=== PATIENT | male | born 1985 | race Caucasian/White ===

== ENCOUNTER 2024-03-28 17:06 | Emergency (ER) | payer OTHER, SELFPAY ==
[2024-03-28 17:13] VITALS: BP 135/80; PULSE 110; RESP 18; TEMP 36.6; O2SAT 96; BMI 27.7
--- NOTE | 2024-03-28 17:14 | ED.GENADULT ---
HPI - General Adult General Time Seen by Provider: 17:14 Date Seen: 03/28/24 Chief complaint: Extremity Pain/Injury, Lower Stated complaint: Numbness/pain in R leg Time Seen by Provider: 03/28/24 17:13 Source: patient, RN notes reviewed and old records reviewed Mode of arrival: ambulatory Limitations: no limitations History of Present Illness HPI narrative: 38-year-old male who presents today with right leg pain and numbness. Patient noted today that he has some decreased sensation of the right anterior lateral thigh. No leg weakness, no bowel or bladder incontinence, no back pain. Notes that he is driving his 's car now. Also notes a tender superficial vessel of the right posterior medial lower leg but no leg swelling or calf pain. Related Data Home Medications Medication Instructions Recorded Confirmed No Known Home Medications 03/28/24 03/28/24 Allergies Allergy/AdvReac Type Severity Reaction Status Date / Time No Known Drug Allergies Allergy Verified 03/28/24 17:13 Exam Narrative: Exam Narrative: General: well nourished , NAD Head: Atraumatic and normocephalic ENT: External ears and external nose are normal Eyes: Conjunctiva clear, pupils are equal reactive, external ocular motions are intact Neck: Full spontaneous range of motion of the neck Lungs: No respiratory distress Musculoskeletal: Prominent tender superficial vessel of the right posterior medial lower leg without erythema or warmth Neurologic: Decreased sensation of the anterior lateral mid and lower thigh Skin: No rashes Psych: Mood and affect are appropriate Const: Vital Signs, click to edit/add: Vital Signs - 24 hr 03/28/24 17:13 Temperature 97.9 F Pulse Rate [Pulse Oximeter] 110 H Respiratory Rate 18 Blood Pressure [Ri ght Upper Arm] 135/80 Pulse Oximetry 96 Oxygen Delivery Me thod Room Air Course Course ED Course: Patient seen and examined, prior records reviewed. Patient presents today with decreased sensation of the right anterior lateral thigh, no other neurologic deficits, strength and sensation of the lower extremities intact otherwise. Symptoms are most consistent with meralgia paresthetica which may be related to patient having a new cough are and being in a different position for driving. He also has a tender superficial varicose vein of the right lower leg, bedside ultrasound demonstrates that this is fully compressible, deep veins of the lower leg are also fully compressible. This is consistent with a tender varicose vein but no evidence for superficial or deep thrombus. Patient is stable for discharge. Vital Signs Vital signs: Initial Vital Signs Temperature 97.9 F 03/28/24 17:13 Temperature Source Temporal Artery Scan 03/28/24 17:13 Pulse Rate 110 H 03/28/24 17:13 Pulse Rhythm Regular 03/28/24 17:13 Respiratory Rate 18 03/28/24 17:13 Blood Pressure 135/80 03/28/24 17:13 Blood Pressure Mean 98 03/28/24 17:13 Blood Pressure Position Sitting 03/28/24 17:13 Pulse Oximetry 96 03/28/24 17:13 Oxygen Delivery Method Room Air 03/28/24 17:13 Vital Signs Temperature 97.9 F 03/28/24 17:13 Pulse Rate 110 H 03/28/24 17:13 Respiratory Rate 18 03/28/24 17:13 Blood Pressure 135/80 03/28/24 17:13 Pulse Oximetry 96 03/28/24 17:13 Oxygen Delivery Method Room Air 03/28/24 17:13 Temperature 97.9 F 03/28/24 17:13 Pulse Rate 110 H 03/28/24 17:13 Respiratory Rate 18 03/28/24 17:13 Blood Pressure 135/80 03/28/24 17:13 Pulse Oximetry 96 03/28/24 17:13 Oxygen Delivery Method Room Air 03/28/24 17:13 Discharge Plan Discharge Clinical Impression: Varicose veins of calf, Meralgia paresthetica of right side Patient Disposition: Home, Self-Care Condition: Stable Instructions: Meralgia Paresthetica (ED) Additional Instructions: Follow-up with your primary care doctor, consider physical therapy Activity Level: No Restrictions Discharge Diet: Regular Prescriptions: No Action No Known Home Medications Stand Alone Forms: MyHealth Info Instructions
--- OUTSIDE RECORDS SUMMARY | 2024-03-28 17:46 | XMS_ITS | Patient Health Record ---
Author Name Unknown Organization [facility] [[email or web address]] S Address [address] [id number] Care Team Providers Care Undercar Specialist Name Role Phone Parish Martinez Primary Care Provider [phone] Reason For Referral No Information Medications Medication SIG (Take, Route, Frequency, Duration) Notes Start Date End Date Status zzz(CUSTOM Rx) NONE O *please review for potential _update for e-prescription and drug interaction check* Not-Taking Immunizations Vaccine Route Administration Date Status Comme nts Tdap (Adacel 11-64 yrs) IM Intramuscular 04/12/2010 Admini stered Social History Tobacco Use: Social History Observation Description Date Details (start date - stop date) Never Smoker NA - NA Alcohol Screen Question Answer Notes Did you have a drink contain ing alcohol in the past year? Yes How often did you have a dri nk containing alcohol in the past year? Two to four times a month (2 points) How many drinks did you have on a typical day when you were drinking in the past year? 3 or 4 (1 point) How often did you have six o r more drinks on one occasion in the past year? Never (0 points) Points 3 Interpretation Negative Tobacco Status Question Answer Notes I am: never smoker Problems No Known Problems Plan Of Treatment No Information Insurance Providers Payer Name Payer Address Payer Phone Subscriber Number Group Number Insured Name Patient Relationship to Insured Coverage Start Date Coverage End Date [employer] [address] [place] [id number] [phone] [id number] Ethan Bradshaw Self - patient is the insured 0 Medical (General) History Medical History History ICD Code No chronic medical issues SVT s/p ablation, no residual issues Surgical History Surgery Date(Month/Year) Hospitalization History Reason Date(Month/Year) Cardiac ablation due to SVT 2008
--- OUTSIDE RECORDS SUMMARY | 2024-03-28 17:46 | XMS_ITS | Referral Summary ---
Author Name Unknown Organization [facility] Address [address] [place] [id number] Care Team Providers Care C++ Quant Developer Name Role Phone No Ref-Primary, Physician Primary Care Provider Allergies No known active allergies Medications Medication Sig Dispensed Refills Start Date End Date Status cefdinir (OMNICEF) 300 MG capsuleIndications:Fe agusto, unknown origin Take 1 capsule (300 mg) by mouth 2 times daily 20 capsule 09/23/2017 Active azithromycin (ZITHROMAX) 250 MG tabletIndications:Upp er respiratory tract infection, unspecified type Two tablets first day, then one tablet daily for four days. 6 tablet 09/25/2017 Active Active Problems No known active problems Immunizations Name Administration Dates Next Due Influenza Vaccine >6 months,[email or web address] 07/21/2017 Social History Tobacco Use Types Packs/Day Years Used Date Smoking Tobacco: Never Smokeless Tobacco: Never Alcohol Use Standard Drinks/Week Comments Yes 0 (1 standard drink = 0.6 oz pur e alcohol) maybe 5-6 drinks once a week Sex and Gender Information Value Date Recorded Sex Assigned at Not on file Gender Identity Not on file Sexual Orientation Not on file Last Filed Vital Signs Vital Sign Reading Time Taken Comments Blood Pressure 118/74 09/25/2017 2:28 PM [employer]CIAL [employer]ASING [employer]ENT Pulse 114 09/25/2017 2:28 PM [employer]ING [employer]ENT Temperature 36.8 ??C (98.3 ??F) 09/25/2017 2:28 PM CS T Respiratory Rate 17 09/25/2017 2:28 PM [employer]ING [employer]ENT Oxygen Saturation 97% 09/25/2017 2:28 PM [employer]ING [employer]ENT Inhaled Oxygen Concentration - - Weight 87.5 kg (193 lb) 09/25/2017 2:28 PM COMM[employer] LEASING AGENT Height 185.4 cm (6' 1) 09/25/2017 2:28 PM COMM[employer]CIAL LEASING AGENT Body Mass Index 25.46 09/25/2017 2:28 PM COMMERCIAL LEASING AGENT Plan of Treatment Not on file Care Teams C++ Quant Developer Relationship Specialty Start Date End Date No Ref-Primary, Physician PCP - General 09/23/17
--- OUTSIDE RECORDS SUMMARY | 2024-03-28 17:46 | XMS_ITS | Clinical Summary ---
Author Name Unknown Organization [facility] Address [address] [place] [address] Care Team Providers Care Director Hematology Name Role Phone Unknown, Physician Primary Care Provider [phone] Source Comments You are receiving this document as you are listed as the primary care provider,follow-up provider, or the patient has been referred to you for consultation.This is in compliance with the Medicare and[facility] EHR Incentive Program,which states Providers who transition their patient to another setting of careor provider of care or refers their patient to another provider of care shouldprovide summary care record for each transition of care or referral. [facility] Allergies No known active allergies Medications No known medications Active Problems No known active problems Social History Tobacco Use Types Packs/Day Years Used Date Smoking Tobacco: Every Day Comments:chewing tobacco Alcohol Use Standard Drinks/Week Comments Not Asked 0 (1 standard drink = 0.6 oz pur e alcohol) Sex and Gender Information Value Date Recorded Sex Assigned at Not on file Gender Identity Not on file Sexual Orientation Not on file Last Filed Vital Signs Vital Sign Reading Time Taken Comments Blood Pressure 127/71 05/30/2021 3:58 PM CDT Pulse 96 05/30/2021 3:58 PM CDT Temperature 36.6 ??C (97.8 ??F) 01/15/2006 3:15 PM CS T Respiratory Rate 16 05/30/2021 3:58 PM CDT Oxygen Saturation 96% 05/30/2021 3:58 PM CDT Inhaled Oxygen Concentration - - Weight - - Height - - Body Mass Index - - Plan of Treatment Health Maintenance Due Date Last Done Comments Hep C Screening (Preventive Services) 1987 Pneumococcal (1 - PCV) 1993 HIV Screening (Preventive Services) 2003 Adult Preventive Visit 2005 HepB (1) 2006 Cholesterol 2022 COVID-19 Vaccine (3 - season) 2023 12/22/2020, 11/24/2020 Influenza (Season Ended) 2024 020, 08/19/2019, 07/31/2018, Additional history exists DTaP/Tdap/Td (4 - Tdap) 02/16/2027 02/17/20 17, 05/16/2010, 04/12/2010 Zoster/Shingles (1 of 2) 2037 HPV Vaccine Aged Out No longer eligi ble based on patient's age to complete this topic HepA Aged Out No longer eligi ble based on patient's age to complete this topic Hib Aged Out No longer eligi ble based on patient's age to complete this topic IPV (Polio) Aged Out No longer eligi ble based on patient's age to complete this topic MCV4 Aged Out No longer eligi ble based on patient's age to complete this topic Care Teams Director Hematology Relationship Specialty Start Date End Date Unknown, Physician [address] [place] [address] PCP - General 11/06/08
--- OUTSIDE RECORDS SUMMARY | 2024-03-28 17:46 | XMS_ITS | Clinical Summary ---
Author Name Unknown Organization [facility] Address [place], [place] [address] Care Team Providers Care Cross Roller Name Role Phone Leroy Santos MD Primary Care Provider [phone] Wesley Gandara MD Unavailable [phone] Allergies No known active allergies Medications Medication Sig Dispensed Refills Start Date End Date Status trimethoprim-poly myxin b (POLYTRIM) ophthalmic solution APPLY 1 DROP INTO THE AFFECTED EYE(S) EVERY 3 HOURS UP TO 6 TIMES A DAY FOR 7 DAYS 02/15/2024 03/05/2024 Discontinued( *Med complete/Ana men complete/Leve l of care change) Active Problems Problem Noted Date Diagnosed Date Dysplastic nevi 11/11/2022 Overview: 11/08/22: Compound nevus with severe atypia - excised 12/28/22 Tendinitis of right rotator cuff 12/25/2017 Acute pain of right shoulder 12/25/2017 Viral warts 02/03/2016 SVT (supraventricular tachycardia) 01/08/2009 Overview: Atypical AVNRT, ELECTROPHYSIOLOGY STUDY, ABLATION 01-08-2009 ATTENTION DEFICIT DISORDER WITH HYPERACTIVITY BACK ACHE 05/08/2000 Encounters Date Type Department Care Team Description 03/28/2024 Nurse Triage [facility] [address] [place] [address] Leroy Santos MD Leg Pain/problem 03/27/2024 Procedure Only [facility] [address] [place] [address] Device Check (Routine LINQ Remote Transmis... 03/05/2024 4:10 PM CDT Orders Only [facility] [address] [place] [address] Lab 03/05/2024 2:45 PM CDT Ancillary Procedure [facility] [address] [place] [address] 03/05/2024 1:56 PM CDT - 03/05/2024 11:59 PM CDT Hospital Encounter [facility] [address] [place] [address] Wesley Gandara MD SVT (supraventricular tachycardia) (HC); Family history of early CAD 03/05/2024 9:30 AM CDT Telemedicine [facility] [address] [place] [address] Verito Murguia NP Telehealth 03/05/2024 Travel 03/04/2024 Telephone [facility] [address] [place] [address] Roselyn Carson RN 03/04/2024 Telephone [facility] [address] [place] [address] Verito Murguia NP Sleep Consult 03/02/2024 Nurse Triage [facility] [address] [place] [address] Jean-Claude Campa MD Concerns 02/22/2024 11:19 AM CDT - 02/22/2024 12:46 PM CDT Hospital Encounter [facility] [address] [place] [address] Jean-Claude Campa MD Discharge Disposition: Home Self Care 02/22/2024 Travel 02/19/2024 7:30 PM CDT Office Visit [facility] [address] [place] [address] Neelam Vuong NP Throat Problem 02/19/2024 Travel 02/15/2024 Everyday Online [facility] E-Visits [address] [place] [address] Job Whalen NP 02/15/2024 Telephone [facility] [address] [place] [phone] Jean-Claude Campa MD Pre Procedure; Letter; Education 02/09/2024 10:30 AM CDT Office Visit [facility] [address] [place] [phone] Wesley Gandara MD Follow Up (Follow up after testing); Concerns (Patient denies CP, SOB and dizziness. Patient did have CP at the time he had the heart monitor on. ) 02/09/2024 Travel 01/30/2024 Telephone [facility] [address] [place] [address] Wesley Gandara MD Results (Heart monitor) 01/22/2024 Telephone [facility] [address] [place] [address] Wesley Gandara MD 01/19/2024 11:42 AM TRACTOR CRANE OPERATOR - 01/19/2024 11:59 PM TRACTOR CRANE OPERATOR Hospital Encounter [facility] [address] [place] [address] Wesley Gandara MD SVT (supraventricular tachycardia) 01/19/2024 5:14 AM TRACTOR CRANE OPERATOR - 01/19/2024 6:57 AM TRACTOR CRANE OPERATOR [facility] [address] [place] [address] Jesus Vásquez IV, MD Chest pain, unspecified type (Primary Dx); Palpitations Discharge Disposition: Home Self Care 01/19/2024 Travel from Last 3 Months Immunizations Name Administration Dates Next Due COVID-19 vaccine (Moderna 100mcg/0.5mL) AGNIESZKA ENG 12/22/2020,11/24/2020 Influenza, IIV3 (Age >=3 years) 10/12/2012 Influenza, IIV4 09/20/2022,07/21/2017,12/22/2016 Influenza, IIV4 (=>6mos) MDV 08/18/2021, 08/19/2020,08/19/2019,07/31/20 18 Td (Age >=7 Years) 05/16/2010 Tdap 02/16/2017,04/12/2010 Family History Medical History Relation Name Comments Good Health Father Good Health Mother Relation Name Status Comments Father Mother Social History Tobacco Use Types Packs/Day Years Used Date Smoking Tobacco: Former Cigarettes Smokeless Tobacco: Former Tobacco Cessation:Counseling Given: Not Answered Comments:Quit 8-10 years ago. Noted 10/08/19 Alcohol Use Standard Drinks/Week Comments Yes 0 (1 standard drink = 0.6 oz pur e alcohol) social PHQ-2 Answer Date Recorded PHQ-2 TOTAL SCORE 0 10/17/2022 Social Connections Answer Date Recorded Frequency of Communication with Friends and Fami ly 0 02/19/2024 Financial Resource Strain Answer Date R ecorded Difficulty of Paying Living Expenses 3 02/19/2024 Difficulty of Paying Living Expenses Not on file 02/19/2024 Food Insecurity Answer Date Recorded Worried About Running Out of Food in the Last Ye ar 1 02/19/2024 Transportation Needs Answer Date Record ed Lack of Transportation (Medical) 1 02/19/2024 Housing Stability Answer Date Recorded Unable to Pay for Housing in the Last Year 1 02/19/2024 Sex and Gender Information Value Date Recorded Sex Assigned at Not on file Gender Identity Not on file Sexual Orientation Not on file Obstetrics History Last Filed Vital Signs Vital Sign Reading Time Taken Comments Blood Pressure 158/84 03/05/2024 3:35 PM CDT Pulse 104 03/05/2024 3:35 PM CDT Temperature 37.2 ??C (98.9 ??F) 02/22/2024 1 1:48 AM CDT Respiratory Rate 16 02/22/2024 11:4 8 AM CDT Oxygen Saturation 93% 03/05/2024 3:35 PM CDT Inhaled Oxygen Concentration - - Weight 96.1 kg (211 lb 14.4 oz) 024 10:29 AM CDT Height 185.4 cm (6' 1) 01/19/2024 5:11 AM TRACTOR CRANE OPERATOR Body Mass Index 27.96 01/19/2024 5:11 AM TRACTOR CRANE OPERATOR Plan of Treatment Upcoming Encounters Date Type Department Care Team (Late st Contact Info) Description 03/29/2024 2:20 PM CDT Office Visit [facility] [address] [place] [address] [place] [address] [address] 04/29/2024 Procedure Only [facility] [address] [place] [address] Health Maintenance Due Date Last Done Comments HIV for age 15-65 2002 Hepatitis C screening for age 18-79 2005 Lipids for age 35-44 2022 COVID-19 vaccine series ( season) 2023 12/22/2020, 11/24/2020 Depression screening for age 12+ 10/17/2023 10/17/2022, 10/11/2019, 10/08/2019, Additional history exists Influenza for age 9-49 07/21/2024 , 08/18/2021, 08/19/2020, Additional history exists BMI (ht and wt on same day) for age 18+ 12/27/2024 12/27/2023, 01/10/2023, 10/17/2022, Additional history exists Tetanus booster 02/16/2027 02/16/2017, 04/21, 04/12/2010 Tdap Completed 02/16/2017, 04/12/2010 Pneumococcal series for age 6-64 Aged Out No longer eligible based on patient's age to complete this topic Procedures Procedure Name Priority Date/Time Associated Diagnosis Comments MR CARDIAC STRESS IMAGING WWO Routine 03/05/2024 4:00 PM CDT SVT (supraventricular tachycardia) (HC) Family history of early CAD HEMATOCRIT/HGB,ISTA T Routine 03/05/2024 2:51 PM CDT XR EYE FOREIGN BODY STAT 03/05/2024 2 :33 PM CDT SVT (supraventricular tachycardia) (HC) Family history of early CAD EKG 12 LEAD Preop 02/22/2024 11:43 AM CDT STREP A PCR STAT 02/19/2024 7:40 PM CDT Sore throat THROAT RAPID STREP A WITH REFLEX STAT 02/19/2024 7:40 PM CDT Sore throat ACT MONITOR Routine 01/29/2024 SVT (supraventricular tachycardia) ECHO TTE COMPLETE WO CONTRAST Routine 01/19/2024 12:12 PM TRACTOR CRANE OPERATOR SVT (supraventricular tachycardia) XR CHEST 2 VIEWS PA AND LATERAL STAT 01/19/2024 6:24 AM TRACTOR CRANE OPERATOR TSH PRAFUL 01/19/2024 5:27 AM TRACTOR CRANE OPERATOR D-DIMER,QUANTITATIV E STAT 01/19/2024 5:27 AM TRACTOR CRANE OPERATOR TROPONIN T (HS) ACUTE W/2HR REFLEX STAT 01/19/2024 5:27 AM TRACTOR CRANE OPERATOR BASIC METABOLIC PANEL STAT 01/19/2024 5:27 AM TRACTOR CRANE OPERATOR CBC W PLT NO DIFF STAT 01/19/2024 5:2 7 AM TRACTOR CRANE OPERATOR EKG 12 LEAD STAT 01/19/2024 5:17 AM TRACTOR CRANE OPERATOR from Last 3 Months Results * MR CARDIAC STRESS IMAGING WWO (03/05/2024 4:00 PM CDT) Anatomical Region Laterality Modality Magnetic Resonan ce 03/05/2024 3:03 PM CDT Narrative 03/05/2024 4:03 PM CDT ?[facility] ? CMR Report ??MRN: ?[id number] ?Name: ?ETHAN JUNIOR ?: ? 1984-Johnathan-12 ?Scan Date: ? Electronically signed by Alberto Lester 16:03:48 VITALS ===== HEIGHT: 73 in ?(185 cm) WEIGHT: 210 lbs ?(95 kgs) BSA: 2.20 m^2 FINAL IMPRESSION ===== 1. Stress MRI is negative for ischemia. - No perfusion defect noted. - Normal global myocardial blood flow (3.2 ml/min/g). - Normal global myocardial perfusion reserve (2.8). 2. LV cavity size is normal. LV wall thickness is normal. LV systolic function is normal. Quantitative LVEF 59 %. - Normal ECV. - Hyperenhancement is normal. 3. RV cavity size is normal. RV systolic function is normal. Quantitative RVEF 56 %. SUMMARY ===== LEFT VENTRICLE: LV cavity size is normal. LV wall thickness is normal. LV systolic function is normal. Quantitative LVEF 59 %. VIABILITY: Hyperenhancement is normal. STRESS: No perfusion defect noted. Normal global myocardial blood flow (3.2 ml/min/g). Normal global myocardial perfusion reserve (2.8). RIGHT VENTRICLE: RV cavity size is normal. RV systolic function is normal. Quantitative RVEF 56 %. LV/RV SEPTUM: The LV/RV septum is normal. LA/RA SEPTUM: The LA/RA septum is normal. LEFT ATRIUM: LA cavity size is normal. RIGHT ATRIUM: RA cavity size is normal. PERICARDIUM: There is no pericardial effusion. PLEURAL EFFUSION: There is no pleural effusion. AORTIC VALVE: Aortic valve is trileaflet. There is no aortic regurgitation. There is no aortic stenosis. MITRAL VALVE: The mitral valve is normal. TRICUSPID VALVE: The tricuspid valve is normal. PULMONIC VALVE: The pulmonic valve is normal. AORTIC ROOT: The aortic root is normal. OTHER FINDINGS: 1. Normal ascending aorta dimension. 2. Normal IVC size. 3. Implantable loop recorder in chest. CORE EXAM ===== MEASUREMENTS ----- --- ?VOLUMETRIC ANALYSIS ? . . ? LV ?? Reference ?? RV ?? Reference ?? +-----+ +------+ +------+ + EDV ml ?152 ??(121-204) ??167 ??(121-221) ? ml/m^2 ? 69 ??(66-101) ? 76 ??(65-111) ?? ESV ml ? 63 ??(33-78) ? 74 ??(34-94) ? ml/m^2 ? 29 ??(18-39) ? 34 ??(18-47) ?? CO ?? L/min ? 8.37 ? 8.74 ? L/min/m^2 3.81 ? 3.98 ? SV ?? ml ? 89 ??(79-135) ? 93 ??(74-142) ? ml/m^2 ? 41 ??(43-67) ? 42 ??(39-71) ?? EF ?? % ? 59 ??(57-75) ? 56 ??(50-76) ?? '-----+ +------+ +------+ ' ?CARDIAC OUTPUT HR: ??94 BPM ?LV DIMENSIONS ?WALL THICKNESS - ANTEROSEPTAL: ??0.9 cm ?WALL THICKNESS - INFEROLATERAL: ??0.7 cm ?AORTIC ROOT DIMENSIONS ?SINUS OF VALSALVA: ??3.4 cm ?AORTIC VALVE ?ASCENDING AORTA & CORONARY OSTIA ?MAX ASCENDING AORTA DIAMETER: ??30 mm ?EXTRACELLULAR VOLUME MEASUREMENT ?PRE-CONTRAST T1 MYOCARDIUM: ??1038 msec 17 SEGMENT ----- --- . ----- ------. Segments ? Wall Motion ?? Hyperenhancement Stress Perfusion Interpretation + + + + +----- ----- ------+ Base Anterior ? Normal/Hyper None ? Normal ? No WY or Scar ?? Base Anteroseptal ?? Normal/Hyper None ? Normal ? No WY or Scar ?? Base Inferoseptal ?? Normal/Hyper None ? Normal ? No WY or Scar ?? Base Inferior ? Normal/Hyper None ? Normal ? No WY or Scar ?? Base Inferolateral Normal/Hyper None ? Normal ? No WY or Scar ?? Base Anterolateral Normal/Hyper None ? Normal ? No WY or Scar ?? Mid Anterior ? Normal/Hyper None ? Normal ? No WY or Scar ?? Mid Anteroseptal ?? Normal/Hyper None ? Normal ? No WY or Scar ?? Mid Inferoseptal ?? Normal/Hyper None ? Normal ? No WY or Scar ?? Mid Inferior ? Normal/Hyper None ? Normal ? No WY or Scar ?? Mid Inferolateral ?? Normal/Hyper None ? Normal ? No WY or Scar ?? Mid Anterolateral ?? Normal/Hyper None ? Normal ? No WY or Scar ?? Apical Anterior ? Normal/Hyper None ? Normal ? No WY or Scar ?? Apical Septal ? Normal/Hyper None ? Normal ? No WY or Scar ?? Apical Inferior ? Normal/Hyper None ? Normal ? No WY or Scar ?? Apical Lateral ? Normal/Hyper None ? Normal ? No WY or Scar ?? Plato ? Normal/Hyper None ? Normal ? No WY or Scar ?? + + + + +----- ----- ------+ RV Segments ? Wall Motion ?? Hyperenhancement ? Interpretation + + + + +----- ----- ------+ RV Basal Anterior ? RV Basal Inferior ? RV Mid ? RV Apical ? ' + + + +----- ----- ------' ?FINDINGS ?LV SCAR SIZE (17 SEGMENT): ??0 % STRESS ===== STRESS PROTOCOL ----- --- ?Regadenoson ?AMOUNT: ??0.4 mg ?MOTION CORRECTED: ??Yes ?ANALYSIS: ??Semi-quantitative RESTING DATA ----- --- ?SYSTOLIC BP: ??142 mmHg ?DIASTOLIC BP: ??83 mmHg ?RESTING HR: ??90 BPM STRESS DATA ----- --- ?PEAK SYSTOLIC BP: ??158 mmHg ?PEAK DIASTOLIC BP: ??84 mmHg ?PEAK HR: ??104 BPM ?REASON FOR TERMINATION: ??Protocol Complete ?COMPLICATIONS: ??None SCAN INFO ===== GENERAL ----- --- ?SCANNER ?MANAGER QUALITY IMPROVEMENT: ??SIEMENS ?MODEL: ??Avanto_fit ?CONTRAST AGENT ?TYPE: ??Gadavist ?GD CONCENTRATION: ??1.0 M ?VOLUME ADMINISTERED: ??10 ml ?DOSAGE: ??0.10 mmol/kg ?SETUP ?REFERRING PHYSICIAN: ??WESLEY GANDARA ?ATTENDING PHYSICIAN: ??WESLEY GANDARA BILLING ===== Patient Account ?[id number] ICD10 Codes ?I47.10, Z82.49 Report generated by [employer], a product of [employer] Procedure Note Alberto Lester MD - 03/05/2024 [facility] CMR Report Name: ETHAN JUNIOR : Scan Date: Electronically signed by Alberto Lester 16:03:48 VITALS ===== HEIGHT: 73 in (185 cm) WEIGHT: 210 lbs (95 kgs) BSA: 2.20 m^2 FINAL IMPRESSION ===== 1. Stress MRI is negative for ischemia. - No perfusion defect noted. - Normal global myocardial blood flow (3.2 ml/min/g). - Normal global myocardial perfusion reserve (2.8). 2. LV cavity size is normal. LV wall thickness is normal. LV systolicfunction is normal. Quantitative LVEF 59 %. - Normal ECV. - Hyperenhancement is normal. 3. RV cavity size is normal. RV systolic function is normal. QuantitativeRVEF 56 %. SUMMARY ===== LEFT VENTRICLE: LV cavity size is normal. LV wall thickness is normal. LVsystolic function is normal. Quantitative LVEF 59 %. VIABILITY: Hyperenhancement is normal. STRESS: No perfusion defect noted. Normal global myocardial blood flow(3.2 ml/min/g). Normal global myocardial perfusion reserve (2.8). RIGHT VENTRICLE: RV cavity size is normal. RV systolic function is normal.Quantitative RVEF 56 %. LV/RV SEPTUM: The LV/RV septum is normal. LA/RA SEPTUM: The LA/RA septum is normal. LEFT ATRIUM: LA cavity size is normal. RIGHT ATRIUM: RA cavity size is normal. PERICARDIUM: There is no pericardial effusion. PLEURAL EFFUSION: There is no pleural effusion. AORTIC VALVE: Aortic valve is trileaflet. There is no aorticregurgitation. There is no aortic stenosis. MITRAL VALVE: The mitral valve is normal. TRICUSPID VALVE: The tricuspid valve is normal. PULMONIC VALVE: The pulmonic valve is normal. AORTIC ROOT: The aortic root is normal. OTHER FINDINGS: 1. Normal ascending aorta dimension. 2. Normal IVC size. 3. Implantable loop recorder in chest. CORE EXAM ===== MEASUREMENTS ----- --- VOLUMETRIC ANALYSIS . . LV Reference RV Reference +-----+ +------+ +------+ + EDV ml 152 (121-204) 167 (121-221) ml/m^2 69 (66-101) 76 (65-111) ESV ml 63 (33-78) 74 (34-94) ml/m^2 29 (18-39) 34 (18-47) CO L/min 8.37 8.74 L/min/m^2 3.81 3.98 SV ml 89 (79-135) 93 (74-142) ml/m^2 41 (43-67) 42 (39-71) EF % 59 (57-75) 56 (50-76) '-----+ +------+ +------+ ' CARDIAC OUTPUT HR: 94 BPM LV DIMENSIONS WALL THICKNESS - ANTEROSEPTAL: 0.9 cm WALL THICKNESS - INFEROLATERAL: 0.7 cm AORTIC ROOT DIMENSIONS SINUS OF VALSALVA: 3.4 cm AORTIC VALVE ASCENDING AORTA & CORONARY OSTIA MAX ASCENDING AORTA DIAMETER: 30 mm EXTRACELLULAR VOLUME MEASUREMENT PRE-CONTRAST T1 MYOCARDIUM: 1038 msec 17 SEGMENT ----- --- . ----- ------. Segments Wall Motion Hyperenhancement Stress Perfusion Interpretation + + + + +----- ----- ------+ Base Anterior Normal/Hyper None Normal No WY or Scar Base Anteroseptal Normal/Hyper None Normal No WY or Scar Base Inferoseptal Normal/Hyper None Normal No WY or Scar Base Inferior Normal/Hyper None Normal No WY or Scar Base Inferolateral Normal/Hyper None Normal No WY or Scar Base Anterolateral Normal/Hyper None Normal No WY or Scar Mid Anterior Normal/Hyper None Normal No WY or Scar Mid Anteroseptal Normal/Hyper None Normal No WY or Scar Mid Inferoseptal Normal/Hyper None Normal No WY or Scar Mid Inferior Normal/Hyper None Normal No WY or Scar Mid Inferolateral Normal/Hyper None Normal No WY or Scar Mid Anterolateral Normal/Hyper None Normal No WY or Scar Apical Anterior Normal/Hyper None Normal No WY or Scar Apical Septal Normal/Hyper None Normal No WY or Scar Apical Inferior Normal/Hyper None Normal No WY or Scar Apical Lateral Normal/Hyper None Normal No WY or Scar Plato Normal/Hyper None Normal No WY or Scar + + + + +----- ----- ------+ RV Segments Wall Motion Hyperenhancement Interpretation + + + + +----- ----- ------+ RV Basal Anterior RV Basal Inferior RV Mid RV Apical ' + + + +----- ----- ------' FINDINGS LV SCAR SIZE (17 SEGMENT): 0 % STRESS ===== STRESS PROTOCOL ----- --- Regadenoson AMOUNT: 0.4 mg MOTION CORRECTED: Yes ANALYSIS: Semi-quantitative RESTING DATA ----- --- SYSTOLIC BP: 142 mmHg DIASTOLIC BP: 83 mmHg RESTING HR: 90 BPM STRESS DATA ----- --- PEAK SYSTOLIC BP: 158 mmHg PEAK DIASTOLIC BP: 84 mmHg PEAK HR: 104 BPM REASON FOR TERMINATION: Protocol Complete COMPLICATIONS: None SCAN INFO ===== GENERAL ----- --- SCANNER MANAGER QUALITY IMPROVEMENT: SIEMENS MODEL: Avanto_fit CONTRAST AGENT TYPE: Gadavist GD CONCENTRATION: 1.0 M VOLUME ADMINISTERED: 10 ml DOSAGE: 0.10 mmol/kg SETUP REFERRING PHYSICIAN: WESLEY GANDARA ATTENDING PHYSICIAN: WESLEY GANDARA BILLING ===== Patient Account [id number] ICD10 Codes I47.10, Z82.49 Report generated by [employer], a product of [employer] Wesley Gandara MD MR * HEMATOCRIT/HGB,ISTAT (03/05/2024 2:51 PM CDT) [facility] HEMATOCRIT, POCT 45.0 37.0 - 53.0 % 03/05/2024 2:53 PM CDT [facility] HEMOGLOBIN, POCT 15.3 13.5 - 17.5 g/dL 03/05/2024 2:53 PM CDT [facility] Blood BLOOD SPECIMEN / Unknown 03/05/2024 2:51 PM CDT 03/05/2024 2:53 PM CDT Wesley Gandara MD CHEMISTRY [facility] [address] [place] [id number] [address] [place] [address] * XR EYE FOREIGN BODY (03/05/2024 2:33 PM CDT) Anatomical Region Laterality Modality ORBITS Digital Radiogra phy 03/05/2024 2:33 PM CDT Impressions 03/05/2024 2:47 PM CDT Negative orbits. Both eyes are negative for metallic foreign bodies. Narrative 03/05/2024 2:47 PM CDT For Patients: As a result of the Cures Act, medical imaging exams and procedure reports are released immediately into your electronic medical record. You may view this report before your referring provider. If you have questions, please contact your health care provider. EXAM: XR EYE FOREIGN BODY LOCATION: [facility] DATE: 03/05/2024 INDICATION: Pre-MRI screening for orbital foreign body. COMPARISON: None. Procedure Note Ishmael Chakraborty MD - 03/05/2024 For Patients: As a result of the s Act, medical imagingexams and procedure reports are released immediately into your electronicmedical record. You may view this report before your referring provider.If you have questions, please contact your health care provider. EXAM: XR EYE FOREIGN BODY LOCATION: [facility] DATE: 03/05/2024 INDICATION: Pre-MRI screening for orbital foreign body. COMPARISON: None. IMPRESSION: Negative orbits. Both eyes are negative for metallic foreign bodies. Wesley Gandara MD GENERAL IMAGING * 12 Lead EKG (02/22/2024 11:43 AM CDT) Only the most recent of2 resultswithin the time period is included. Interpretation Normal sinus rhythm Normal ECG When compared with ECG of 19-JAN-2024 05:17, No significant change was found BEYOND NOW Ventricular Rate 95 BPM BEYOND NOW Atrial Rate 95 BPM BEYOND NOW P-R Interval 124 ms BEYOND NOW QRS Duration 94 ms BEYOND NOW QT 332 ms BEYOND NOW QTc 417 ms BEYOND NOW P [place] 56 degrees BEYOND NOW R [place] 47 degrees BEYOND NOW T [place] 33 degrees BEYOND NOW 02/22/2024 11:4 3 AM CDT 02/22/2024 3:32 PM CDT Jean-Claude Campa MD EKG ORD Performing Organization Address City/[facility] Co de Phone Number BEYOND NOW [place], [place] * STREP A PCR (02/19/2024 7:40 PM CDT) GROUP A STREP Negative 02/20/2024 4:58 PM CDT [facility] Throat SPECIMEN FROM THROAT / Unknown Non-Blood / Unknown 02/19/2024 7:40 PM CDT 02/19/2024 7:52 PM CDT Veronica Hope NP MICROBIOLOGY Performing Organization Address [facility] Co de Phone Number [facility] [address] [place] [address], [place] * THROAT RAPID STREP A WITH REFLEX (02/19/2024 7:40 PM CDT) STREP A ANTIGEN Negative 02/19/2024 7:52 PM CDT [facility] Comment:PCR to follow. Throat SPECIMEN FROM THROAT / Unknown Non-Blood / Unknown 02/19/2024 7:40 PM CDT 02/19/2024 7:45 PM CDT Veronica Hope NP MICROBIOLOGY Performing Organization Address [facility] Co de Phone Number [facility] [address] [place] [address], [place] * ACT MONITOR (01/29/2024) Wesley Gandara MD CARDIAC SERVICES ORD * ECHO TTE COMPLETE WO CONTRAST (01/19/2024 12:12 PM TRACTOR CRANE OPERATOR) EJECTION FRACTION 55-60% PROSOLV Anatomical Region Laterality Modality Ultrasound 01/19/2024 11:4 6 AM TRACTOR CRANE OPERATOR Narrative 01/19/2024 12:39 PM TRACTOR CRANE OPERATOR [address], [place] [address] Main: ? Transthoracic Echo Report ETHAN JUNIOR ID: [id number] Age: 38 : 1985 Ordering Provider: WESLEY GANDARA Exam Date: 01/19/2024 11:46 Gender: M [employer] Operations Forester: MITCHELL Height: 73 in BSA: 2.17 m?? BP: 137 / 96 Weight: 205 lbs BMI: 27 kg/m?? HR: 80 Location: [facility] Rhythm: Normal Sinus Rhythm Procedure Components: 2D imaging, Color Doppler, Spectral Doppler Indications: SVT (supraventricular tachycardia) Technical Quality: Adequate Contrast: None Final Conclusion Normal left ventricular chamber size. Calculated left ventricular ejection fraction (modified Hollingsworth technique) is 56 %. Findings consistent with normal left ventricular filling pressure. Normal right ventricular chamber size. Normal TAPSE consistent with normal right ventricular longitudinal systolic function. Normal left atrial size. Left atrial volume index is 22 ml/m??. Aortic sinus of Valsalva is normal in size (3.2 cm, ZScore = -1.1). Normal indexed ascending aorta dimension (3 cm, 1.4 cm/m??). Normal inferior vena cava . There were no prior studies available for comparison. Estimated EF: 55-60% FINDINGS Left Ventricle Normal left ventricular chamber size. Calculated left ventricular ejection fraction (modified Hollingsworth technique) is 56 %. Normal left ventricular wall thickness. Diastolic Function Findings consistent with normal left ventricular filling pressure. Right Ventricle Normal right ventricular chamber size. Normal TAPSE consistent with normal right ventricular longitudinal systolic function. Left Atrium Normal left atrial size. Left atrial volume index is 22 ml/m??. Right Atrium Normal right atrial size. Aortic Valve Aortic valve sclerosis without stenosis. Mitral Valve Mildly thickened mitral valve. Trivial mitral valve regurgitation. Tricuspid Valve Trivial tricuspid valve regurgitation. Pulmonic Valve Trivial pulmonary valve regurgitation. Pericardium No pericardial effusion. Aorta Aortic sinus of Valsalva is normal in size (3.2 cm, ZScore = -1.1). Normal indexed ascending aorta dimension (3 cm, 1.4 cm/m??). Inferior Vena Cava Normal inferior vena cava MEASUREMENTS ??(Male / Female) Normal Values 2D MEASUREMENTS AND LV FUNCTION IVS Diastolic Thickness ? 0.782 cm ?< 1.1 cm / < 1.0 cm LV Diastolic Diameter PLAX ?4.66 cm ? 4.2 - 5.9 / 3.9 - 5.3 cm LV Diastolic Diameter Index ? 2.14 cm/m?? LVPW Diastolic Thickness ?0.859 cm ?< 1.1 cm / < 1.0 cm LV Systolic Diameter PLAX ? 3.25 cm LV Systolic Diameter Index ?1.49 cm/m?? LVOT Diameter ? 2.2 cm LVOT Cardiac Output ? 5.9 l/min LVOT Cardiac Index ?2.68 l/min??m?? LVOT Stroke Volume ?73.7 ml Stroke Volume Index ? 33.5 ml/m?? LV Ejection Fraction MOD BP ? 55.9 % ?>= 55 ??% LA Area 4C View ? 17.6 cm?? LA Length 4C ?5.18 cm LA Area 2C View ? 17.2 cm?? LA Length 2C ?5.08 cm LA Volume MOD BP ?48.3 ml LA Volume Index MOD BP ?22.2 ml/m?16 - 34 ml/m?? RV Diastolic Basal Diameter ? 3.42 cm RV Diastolic Mid Diameter ? 2.91 cm LV Mass ? 125 g LV Mass Index ? 56.9 g/m?? Sinuses of Valsalva Diameter(d) ?? 3.2 cm Ascending Aorta Diameter(s) ? 3 cm IVC Diameter Expiration ? 1.24 cm Ascending Aorta Index ? 1.38 cm/m?? M MODE TAPSE MM ?1.74 cm DIASTOLOGY Mitral E Point Velocity ? 0.529 m/sec ? 0.70 - 1.02 m/sec Mitral A Point Velocity ? 0.463 m/sec ? 0.06 - 1.06 m/sec Mitral E to A Ratio ? 1.14 ?1.1 - 2.1 MV Deceleration Time ?339 msec ?167 - 231 msec LV E' Lateral Velocity ?0.104 m/sec Mitral E to LV E' Lateral Ratio ?? 5.09 LV E' Septal Velocity ? 0.0859 m/sec Mitral E to LV E' Septal Ratio ?6.16 AORTIC VALVE AV Peak Velocity ?1.32 m/sec ?< 2.0 m/sec AV Peak Gradient ?6.97 mmHg AV Mean Gradient ?4 mmHg AV Velocity Time Integral ? 24.1 cm LVOT Peak Velocity ?1.09 m/sec LVOT Velocity Time Integral ? 19.4 cm AV Area Cont Eq vti ? 3.06 cm?? AV Area Cont Eq pk ?3.14 cm?? AV Dimensionless Index ?0.805 MITRAL VALVE MV Pressure Half Time ? 99 msec MV Area PHT ? 2.22 cm?? PULMONIC VALVE PV Peak Velocity ?1.02 m/sec HCM DATA LVOT MALORIE (r) ?4.75 mmHg Aortic Root ZScore: -1.07 Lorraine RAMSEY Accredited Site (Electronically Signed) Final Date: 19 January 2024 12:39 ICD-10 Codes: I47.10 Procedure Note BryceLorraine DILSHAD Celis - 01/19/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 BP: 137 / 96 Weight: 205 lbs BMI: 27 kg/m?? HR: 80 Location: [facility] Rhythm: Normal SinusRhythm Procedure Components: 2D imaging, Color Doppler, Spectral Doppler Indications: SVT (supraventricular tachycardia) Technical Quality: Adequate Contrast: None Final Conclusion Normal left ventricular chamber size. Calculated left ventricularejection fraction (modified Hollingsworth technique) is 56 %. Findings consistent with normal left ventricular filling pressure. Normal right ventricular chamber size. Normal TAPSE consistent withnormal right ventricular longitudinal systolic function. Normal left atrial size. Left atrial volume index is 22 ml/m??. Aortic sinus of Valsalva is normal in size (3.2 cm, ZScore = -1.1).Normal indexed ascending aorta dimension (3 cm, 1.4 cm/m??). Normal inferior vena cava . There were no prior studies available for comparison. Estimated EF: 55-60% FINDINGS Left Ventricle Normal left ventricular chamber size. Calculated leftventricular ejection fraction (modified Hollingsworth technique) is 56 %. Normal left ventricular wall thickness. Diastolic Function Findings consistent with normal left ventricularfilling pressure. Right Ventricle Normal right ventricular chamber size. Normal TAPSEconsistent with normal right ventricular longitudinal systolic function. Left Atrium Normal left atrial size. Left atrial volume index is 22ml/m??. Right Atrium Normal right atrial size. Aortic Valve Aortic valve sclerosis without stenosis. Mitral Valve Mildly thickened mitral valve. Trivial mitral valveregurgitation. Tricuspid Valve Trivial tricuspid valve regurgitation. Pulmonic Valve Trivial pulmonary valve regurgitation. Pericardium No pericardial effusion. Aorta Aortic sinus of Valsalva is normal in size (3.2 cm, ZScore = -1.1).Normal indexed ascending aorta dimension (3 cm, 1.4 cm/m??). Inferior Vena Cava Normal inferior vena cava MEASUREMENTS (Male / Female) Normal Values 2D MEASUREMENTS AND LV FUNCTION IVS Diastolic Thickness 0.782 cm < 1.1 cm / < 1.0cm LV Diastolic Diameter PLAX 4.66 cm 4.2 - 5.9 / 3.9 -5.3 cm LV Diastolic Diameter Index 2.14 cm/m?? LVPW Diastolic Thickness 0.859 cm < 1.1 cm / < 1.0cm LV Systolic Diameter PLAX 3.25 cm LV Systolic Diameter Index 1.49 cm/m?? LVOT Diameter 2.2 cm LVOT Cardiac Output 5.9 l/min LVOT Cardiac Index 2.68 l/min??m?? LVOT Stroke Volume 73.7 ml Stroke Volume Index 33.5 ml/m?? LV Ejection Fraction MOD BP 55.9 % >= 55 % LA Area 4C View 17.6 cm?? LA Length 4C 5.18 cm LA Area 2C View 17.2 cm?? LA Length 2C 5.08 cm LA Volume MOD BP 48.3 ml LA Volume Index MOD BP 22.2 ml/m?? 16 - 34 ml/m?? RV Diastolic Basal Diameter 3.42 cm RV Diastolic Mid Diameter 2.91 cm LV Mass 125 g LV Mass Index 56.9 g/m?? Sinuses of Valsalva Diameter(d) 3.2 cm Ascending Aorta Diameter(s) 3 cm IVC Diameter Expiration 1.24 cm Ascending Aorta Index 1.38 cm/m?? M MODE TAPSE MM 1.74 cm DIASTOLOGY Mitral E Point Velocity 0.529 m/sec 0.70 - 1.02m/sec Mitral A Point Velocity 0.463 m/sec 0.06 - 1.06m/sec Mitral E to A Ratio 1.14 1.1 - 2.1 MV Deceleration Time 339 msec 167 - 231 msec LV E' Lateral Velocity 0.104 m/sec Mitral E to LV E' Lateral Ratio 5.09 LV E' Septal Velocity 0.0859 m/sec Mitral E to LV E' Septal Ratio 6.16 AORTIC VALVE AV Peak Velocity 1.32 m/sec < 2.0 m/sec AV Peak Gradient 6.97 mmHg AV Mean Gradient 4 mmHg AV Velocity Time Integral 24.1 cm LVOT Peak Velocity 1.09 m/sec LVOT Velocity Time Integral 19.4 cm AV Area Cont Eq vti 3.06 cm?? AV Area Cont Eq pk 3.14 cm?? AV Dimensionless Index 0.805 MITRAL VALVE MV Pressure Half Time 99 msec MV Area PHT 2.22 cm?? PULMONIC VALVE PV Peak Velocity 1.02 m/sec HCM DATA LVOT MALORIE (r) 4.75 mmHg Aortic Root ZScore: -1.07 Lorraine Wu MD [facility] Accredited Site (Electronically Signed) Final Date: 19 January 2024 12:39 ICD-10 Codes: I47.10 Wesley Gandara MD ECHO ORD * XR CHEST 2 VIEWS PA AND LATERAL (01/19/2024 6:24 AM TRACTOR CRANE OPERATOR) Anatomical Region Laterality Modality CHEST, THORAX, Lung, HEART Compu suzanna Radiography 01/19/2024 6:24 AM TRACTOR CRANE OPERATOR Impressions 01/19/2024 6:28 AM TRACTOR CRANE OPERATOR Negative chest. Narrative 01/19/2024 6:28 AM TRACTOR CRANE OPERATOR For Patients: As a result of the Cures Act, medical imaging exams and procedure reports are released immediately into your electronic medical record. You may view this report before your referring provider. If you have questions, please contact your health care provider. EXAM: XR CHEST 2 VIEWS PA AND LATERAL LOCATION: [facility] DATE: 01/19/2024 INDICATION: Chest pain COMPARISON: 12/08/2008 Procedure Note Abbe Buitrago MD - 01/19/2024 For Patients: As a result of the Cures Act, medical imagingexams and procedure reports are released immediately into your electronicmedical record. You may view this report before your referring provider.If you have questions, please contact your health care provider. EXAM: XR CHEST 2 VIEWS PA AND LATERAL LOCATION: [facility] DATE: 01/19/2024 INDICATION: Chest pain COMPARISON: 12/08/2008 IMPRESSION: Negative chest. Jesus Vásquez IV, MD GENERAL [facility] * TROPONIN T (HS) ACUTE W/2HR REFLEX (01/19/2024 5:27 AM TRACTOR CRANE OPERATOR) TROPONIN T HS <6 6-15 ng/L ng/L 01/19/2024 6:06 AM TRACTOR CRANE OPERATOR [facility] Blood BLOOD SPECIMEN / Unknown Non-Lab Venipuncture / Unknown 01/19/2024 5:27 AM TRACTOR CRANE OPERATOR 01/19/2024 5:36 AM TRACTOR CRANE OPERATOR Narrative [facility] - 01/19/2024 6:06 AM [facility] hs-cTnT (Elecsys Troponin T Gen 5) concentration (s) above the sex-specific 99th percentile (16 ng/L or greater for males or 11 ng/L or greater for females) are indicative of myocardial injury. If initial hs-cTnT <=100 ng/L at presentation, a 0h/2h ABSOLUTE (ng/L) delta change (rising or falling) of >=10 ng/L suggests a significant change, whereas a 0h/2h delta change <=3 ng/L suggests no significant change. If initial hs-cTnT >100 ng/L at presentation, a 0h/2h/ RELATIVE (percent, %) delta change of 20% is suggested to distinguish patients with acute vs. chronic myocardial injury. There are multiple etiologies that can cause hs-cTnT increases above the 99th percentile (myocardial injury) other than acute myocardial infarction. Clinical context and careful clinical evaluation are critical for diagnosis and risk-stratification. The diagnosis of acute myocardial infarction requires a rising and/or falling pattern in hs-cTnT concentrations with at least one value above the sex-specific 99th percentile PLUS at least one of the following clinical criteria: ischemic symptoms, new or presumed new significant ST-T wave changes or new LBBB, development of pathological Q waves, imaging evidence of new loss of viable myocardium or new regional wall motion abnormality, or identification of intracoronary atherothrombosis or an acute angiographic culprit on coronary angiography. In appropriate low-risk patients with a non-ischemic electrocardiogram without active chest pain with a symptom onset >3-hours without recurrence, a single initial hs-cTnT<6 ng/L identifies patient with a very low risk in emergency department patient population. [place] [facility] CHEMISTRY [facility] SENDOUT [place] [address] [phone] [place] [address] * TSH (01/19/2024 5:27 AM [facility]) Pathologist [facility] TSH 2.42 0.27 - 4.20 uIU/mL 01/19/2024 6:06 AM [facility] Blood BLOOD SPECIMEN / Unknown Non-Lab Venipuncture / Unknown 01/19/2024 5:27 AM [facility] 01/19/2024 5:36 AM [facility] - 01/19/2024 6:06 AM [facility] In Adults, TSH values between 5.00 and 10.00 uIU/ml do not necessarily indicate the presence of Hypothyroidism. Correlation with clinical findings such as presence of goiter and/or Thyroperoxidase (TPO) Antibody may be helpful. For more information please refer to MARY ANNE 2004; 291: 228-238. Yuki RILEY CHEMISTRY [facility] SENDOUT [place] [phone] [place] [address] * CBC W PLT NO DIFF (01/19/2024 5:27 AM [facility]) WHITE BLOOD COUNT 7.4 4.5 - 11.0 thou/cu mm 01/19/2024 5:40 AM [facility] RED BLOOD COUNT 5.04 4.30 - 5.90 mil/cu mm 01/19/2024 5:40 AM [facility] HEMOGLOBIN 16.0 13.5 - 17.5 g/dL 01/19/2024 5:40 AM [facility] HEMATOCRIT 44.8 37.0 - 53.0 % 01/19/2024 5:40 AM [facility] MCV 89 80 - 100 fL 01/19/2024 5:40 AM [facility] MCH 31.7 26.0 - 34.0 pg 01/19/2024 5:40 AM [facility] MCHC 35.7 32.0 - 36.0 g/dL 01/19/2024 5:40 AM [facility] RDW 11.8 11.5 - 15.5 % 01/19/2024 5:40 AM TRACTOR CRANE OPERATOR [facility] PLATELET COUNT 217 140 - 440 thou/cu mm 01/19/2024 5:40 AM [facility] MPV 10.3 6.5 - 11.0 fL 01/19/2024 5:40 AM [facility] NRBC 0.0 % 01/19/2024 5:40 AM [facility] ABS NRBC 0.0 thou /cu mm 01/19/2024 5:40 AM [facility] Blood BLOOD SPECIMEN / Unknown Non-Lab Venipuncture / Unknown 01/19/2024 5:27 AM TRACTOR CRANE OPERATOR 01/19/2024 5:36 AM [facility] Narrative [facility] - 01/19/2024 5:40 AM TRACTOR CRANE OPERATOR RN to order if patient presents with anterior chest pain, consistent with angina. [facility] Triage HEMATOLOGY Performing Organization Address [facility] Co de Phone Number [facility] SENDOUT INTERNAL ZIP [address] [place] [phone] * D-DIMER,QUANTITATIVE (01/19/2024 5:27 AM TRACTOR CRANE OPERATOR) Pathologist [facility] D-DIMER,QUANTI TATIVE <0.22 <=0.49 FEU mcg/mL 01/19/2024 5:49 AM [facility] Blood BLOOD SPECIMEN / Unknown Non-Lab Venipuncture / Unknown 01/19/2024 5:27 AM TRACTOR CRANE OPERATOR 01/19/2024 5:36 AM TRACTOR CRANE OPERATOR Narrative [facility] - 01/19/2024 5:49 AM TRACTOR CRANE OPERATOR The cut off value for exclusion of Deep Vein Thrombosis and / or Pulmonary Embolism is 0.50 FEU mcg/mL For patients greater than 50 years of age the upper limit is age dependent and was calculated with the formula: ?? (PATIENT AGE x 0.01) FEU mcg/mL = Upper limit of normal range Yuki RILEY HEMATOLOGY Performing Organization Address [facility]/ZIP Co de Phone Number [facility] SENDOUT [place] [address]IP [phone] [place] [address] * (ABNORMAL) BASIC METABOLIC PANEL (01/19/2024 5:27 AM [facility]) Pathologist [facility] SODIUM 140 136 - 145 mmol/L 01/19/2024 6:06 AM [facility] POTASSIUM 3.9 3.5 - 5.1 mmol/L 01/19/2024 6:06 AM [facility] CHLORIDE 104 98 - 107 mmol/L 01/19/2024 6:06 AM [facility] CO2,TOTAL 26 22 - 29 mmol/L 01/19/2024 6:06 AM [facility] ANION GAP 10 5 - 18 01/19/2024 6:06 AM [facility] GLUCOSE 111(H) 70 - 99 mg/dL 01/19/2024 6:06 AM [facility] CALCIUM 9.2 8.6 - 10.0 mg/dL 01/19/2024 6:06 AM [facility] BUN 11 6 - 20 mg/dL 01/19/2024 6:06 AM [facility] CREATININE 0.95 0.70 - 1.20 mg/dL 01/19/2024 6:06 AM [facility] BUN/CREAT RATIO 12 10 - 20 6:06 AM [facility] eGFR >90 >90 mL/min/1.7 3m2 01/19/2024 6:06 AM [facility] Comment:As of 2022, eG FR is calculated by the CKD-EPI creatinine equation without race adjustment. ??eGFR can be influenced by muscle mass, exercise, and diet. ??The reported eGFR is an estimation only and is only applicable if the renal function is stable. Blood BLOOD SPECIMEN / Unknown Non-Lab Venipuncture / Unknown 01/19/2024 5:27 AM TRACTOR CRANE OPERATOR 01/19/2024 5:36 AM [facility] [place] [facility] Triage CHEMISTRY [facility] SENDOUT [place] [address] [phone] [place] [address] from Last 3 Months Advance Directives * Full Code (Latest Code Status on File) Date Activated Date Inactivated Comments 01/08/2009 6:16 AM 01/08/2009 7:24 PM Care Teams Cross Roller Relationship Specialty [place] [id number] [place] [address] PCP - General Family Practice 01/10/23 Wesley Gandara MD [address] [place] [address] Consulting Physician Cardiovascular Disease 12/26/23
--- OUTSIDE RECORDS SUMMARY | 2024-03-28 17:46 | XMS_ITS | Clinical Summary ---
Author Name Unknown Organization [facility] Address [address] [place] [address] Care Team Providers Care Park Worker Name Role Phone No Ref-Primary, Physician Primary [...] Administration Dates Next Due Influenza Vaccine >6 months,keshawn, PF 07/21/2017 Family History Medical History Relation Comments Chronic Obstructive Pulmonary Disease Maternal G randfather Myocardial Infarction Maternal Grandfather Relation Status Comments Father Alive Maternal Grandfather Alive Maternal Grandmother Alive Mother Alive Paternal Grandfather Paternal Grandmother Alive Sister 1 Alive Sister 2 Alive Social History Tobacco Use Types Packs/Day Years [...] Comments Blood Pressure 118/74 09/25/2017 2:28 PM ACCOUNT SERVICES REPRESENTATIVE Pulse 114 09/25/2017 2:28 PM ACCOUNT SERVICES REPRESENTATIVE Temperature 36.8 ??C (98.3 ??F) 09/25/2017 2:28 PM CS T Respiratory Rate 17 09/25/2017 2:28 PM ACCOUNT SERVICES REPRESENTATIVE Oxygen Saturation 97% 09/25/2017 2:28 PM ACCOUNT SERVICES REPRESENTATIVE Inhaled Oxygen Concentration - - Weight 87.5 kg (193 lb) 09/25/2017 2:28 PM ACCOUNT SERVICES REPRESENTATIVE Height 185.4 cm (6' 1) 09/25/2017 2:28 PM ACCOUNT SERVICES REPRESENTATIVE Body Mass Index 25.46 09/25/2017 2:28 PM ACCOUNT SERVICES REPRESENTATIVE Plan of Treatment Not on file Care Teams Park Worker Relationship Specialty Start Date End Date No Ref-Primary, Physician PCP - General 09/23/17
== END 2024-03-28 17:47 | disposition home or self-care (01) ==
LOC: ED 17:44
PROVIDERS: Emergency Provider Family Medicine
DX: G57.11 Meralgia paresthetica, right lower limb (principal); I83.811 Varicose veins of right lower extremity with pain
CPT/HCPCS: 99283